=== PATIENT | male | born 1955 | race Caucasian/White ===

== ENCOUNTER 2018-06-17 17:52 | Emergency (ER) | payer OTHER ==
[~2018-06-17] VITALS: Ht 172.7 cm; Wt 63.5 kg
[2018-06-17] MEDS ORDERED: FLOMAX0.4 MG PO (18:06)
[2018-06-17] MEDS ORDERED: ASPIR 8181 MG PO (18:07)
[2018-06-17] MEDS ORDERED: FIBER LAXATIV0.52 GM PO (18:07)
[2018-06-17] MEDS ORDERED: LISINOPRIL10 MG PO (18:07)
[2018-06-17] MEDS ORDERED: UNICOMPLEX M TA1 TA1 PO (18:08)
[2018-06-17 18:31] LABS: ABSOLUTE NEUTROPHILS 10.7 thou/uL (1.4-8.2); BASOPHILS 0.6 % (0.0-2.0); EOSINOPHILS 0.2 % (0.0-3.0); HEMATOCRIT 46.4 % (42.0-52.0); HEMOGLOBIN 16.2 gm/dL (14.0-18.0); LYMPHOCYTES 10.8 % (24.0-44.0); MCH 31.2 pg (26.0-34.0); MCHC 34.9 g/dL (28.0-37.0); MCV 89.5 fL (80.0-100.0); PLATELET COUNT 254 thou/uL (150-400); POLYS 81.4 % (36.0-66.0); RBC 5.19 mil/uL (4.50-6.00); RDW 12.9 % (10.5-14.5); WBC 13.1 thou/uL (4.0-11.0)
[2018-06-17 18:41] LABS: ALBUMIN 3.4 g/dL (3.4-5.0); CALCIUM 9.6 mg/dL (8.5-10.1); CREATININE 0.8 mg/dL (0.7-1.3); DIRECT BILIRUBIN 0.3 mg/dL (<0.1-0.3); MAGNESIUM 1.6 mg/dL (1.8-2.4); TOTAL BILIRUBIN 0.8 mg/dL (<0.1-1.0); TOTAL PROTEIN 7.4 g/dL (6.4-8.2)
[2018-06-17 18:42] LABS: POTASSIUM 2.8 mmol/L (3.5-5.1)
[2018-06-17 20:32] LABS: URINE BLOOD NEGATIVE (Negative); URINE CLARITY CLEAR; URINE COLOR YELLOW; URINE GLUCOSE-RANDOM* NEGATIVE (Negative); URINE KETONES 3+ (Negative); URINE LEUKOCYTES-REFLEX NEGATIVE (Negative); URINE NITRITE-REFLEX NEGATIVE (Negative); URINE PROTEIN (DIPSTICK) NEGATIVE (Negative); URINE SPECIFIC GRAVITY 1.025 (1.005-1.035)
[2018-06-17 20:35] LABS: ICTOTEST (BILI CONFIRMATORY) Negative (Negative); URINE BILIRUBIN NEGATIVE (Negative)
[2018-06-17 21:48] VITALS: BP 163/80
== END 2018-06-17 21:56 | disposition short-term general hospital (02) ==
LOC: ER 17:52
PROVIDERS: Emergency Medicine
DX: G93.89 Other specified disorders of brain (principal); E87.6 Hypokalemia; E83.42 Hypomagnesemia; M25.572 Pain in left ankle and joints of left foot; R22.32 Localized swelling, mass and lump, left upper limb; F17.210 Nicotine dependence, cigarettes, uncomplicated

== ENCOUNTER 2018-06-29 09:48 | Inpatient (IN) | payer OTHER ==
[~2018-06-29] VITALS: Ht 172.7 cm; Wt 63.5 kg
--- NOTE | ~2018-06-29 | PLAN ---
[facility] [place] [address] REHAB UNIT PLAN OF CARE Name: RUPALI ALCARAZ Room #: 512-P ADM IN M.R.#: [id number] Admission: 06/29/18 Attend Phys: Gabino Celeste MD Discharge: Date of : 55 Report #: [id number] THIS REPORT FOR: //name// CC: Iraida Celeste DATE OF SERVICE: 07/01/2018 PROGRESS NOTE/OVERALL PLAN OF CARE The patient was seen back earlier today. Temperature 36.6, pulse 60, respirations 16, blood pressure 134/80. Scalp incision is intact. He was asking about possibly going home on a Jesus ____ with his family. Neurologic exam appeared unchanged. Transfers have been max assist x 2. Squat pivot. He is nonambulatory. He is mod assist, sit to supine, lower body dressing is dependent. He has mild comprehensive deficits. He is on a very regular consistency diet. ASSESSMENT: 1. Right frontal lobe brain mass, status post frontal craniotomy, 06/23/2018. 2. Adenocarcinoma of the lung as the primary metastatic source. 3. Left-sided weakness. 4. Headache. 5. 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 6. Benign prostatic hypertrophy. 7. Hypertension. 8. Tobacco abuse. PLAN: The overall plan of care is based on the preadmission screen, post-admission physician evaluation and information garnered from therapy assessments. 1. Estimated length of stay is probably fairly long 2-3 weeks pending progress because he is at a lower functional level. 2. Medical prognosis is reasonably good. 3. Anticipated interventions includes the interdisciplinary acute inpatient rehabilitation program with PT, OT, speech rehab nursing assisting regarding medication management, skin care prophylaxis, bowel, bladder issues and nursing education. We will have consult physicians continue to follow. 4. Anticipated functional outcomes at this point would be for him to hopefully achieve maximal independence at a wheelchair level. 5. Discharge destination would be back to the home setting. He does live in a duplex with his girlfriend. He does have supportive family. 6. Expected therapy by discipline includes PT and OT and speech 1 hour per day each 5 days a week throughout the duration of the acute inpatient rehabilitation stay. Again, I am uncertain if the therapeutic day pass for Jesus is going to be practical, but will have the therapy team assess [place] [address] REHAB UNIT PLAN OF CARE Name: KIERANRUPALI PAMELA Room #: 512-P [facility] IN [facility]#: [id number] Admission: 06/29/18 Attend Phys: Gabino Celeste MD Discharge: Date of : 55 Report #: [id number] consider family training if the family feels they could give it a try. He would need a significant amount of assistance, but we will see if anything can be worked out. By: [id number] Gabino Celeste MD /TAHIRA
[~2018-06-29 09:48] MED LIST: ASPIR 8181 MG PO; FIBER LAXATIV0.52 GM PO; FLOMAX0.4 MG PO; LISINOPRIL10 MG PO; UNICOMPLEX M TA1 TA1 PO
[2018-06-29] MEDS ORDERED: TYLENOL325 MG PO (18:39)
[2018-06-29] MEDS ORDERED: DECADRON4 MG PO (18:41)
[2018-06-29] MEDS ORDERED: COLACE100 MG PO (18:43)
[2018-06-29] MEDS ORDERED: GENTEAL TEARS1 EACH OPHTHALMIC (18:43)
[2018-06-29] MEDS ORDERED: PEPCID20 MG PO (18:45)
[2018-06-29] MEDS ORDERED: KEFLEX500 M1 PO (18:46)
[2018-06-29] MEDS ORDERED: HEPARIN 5,5000 UNIT3 IV (18:46)
[2018-06-29] MEDS ORDERED: NICOTINE TRANSD21 M1 (18:47)
[2018-06-29] MEDS ORDERED: ROXICODONE5 M2 PO (18:48)
[2018-06-29] MEDS ORDERED: SENOKOT-S1 TA2 PO (18:49)
--- NOTE | 2018-06-29 20:10 | NUR ---
PT CAME WHEELED ON PERSONAL WHEELCHAIR AT 1400H. PT WAS ACCOMPANIED BY DAUGHTER. PT ORIENTED TO UNIT. PT A&OX4. PT ON RA. PT HAS POLIO. PT AFFECTED ON L SIDE ARM AND LEG. L SIDE IS FLACCID. PT HAD R FRONTAL CRANIOTOMY AT . PT HAS SMITA IN PLACE CHANTAL. PT STATES DUE TO BE TAKEN OUT ON . PT HAS L ARM INTERIOR WOUND COVERED WITH MEDIHONEY AND BIOTIN FOAM. PHOTO TAKE AND ON CHART. CONSULT TO WOUND CARE AWAITING ON TREATMENT PLAN. PT STATES ON CHEMICAL STATUS. PT RECORD ON CHART. PT ON MAX ASSIST. ORDERS FOR BOBBY LIFT. PT ABLE TO USE URINAL. PT FALL PRECAUTION IN PLACE. PT BED ALARM ON. PT CALL LIGHT WITHIN REACH. PT CONTINUES TO BE MONITORED FOR SAFETY.
[2018-06-29 20:47] VITALS: BP 124/66
--- NOTE | 2018-06-30 02:49 | NUR ---
assumed care at approx 1900 evening 06/29. pt lying in bed with head of bed elevated resting. pt c/o headache, given Tylenol and reported pain relief. pt took hs meds with water tolerating well. pt voiding per urinal. pt appears to be sleeping soundly with hourly rounding checks. bed alarm on and call light in reach. will continue to monitor.
[2018-06-30 04:52] LABS: ANION GAP 7 mmol/L (7-16); BUN 27 mg/dL (7-18); CALCIUM 8.9 mg/dL (8.5-10.1); CHLORIDE 102 mmol/L (98-107); CO2 25 mmol/L (21-32); CREATININE 0.6 mg/dL (0.7-1.3); GLUCOSE 118 mg/dL (74-106); MAGNESIUM 1.9 mg/dL (1.8-2.4); POTASSIUM 4.5 mmol/L (3.5-5.1); SODIUM 134 mmol/L (136-145)
[2018-06-30 04:55] LABS: HEMATOCRIT 40.8 % (42.0-52.0); HEMOGLOBIN 13.6 gm/dL (14.0-18.0); MCH 30.3 pg (26.0-34.0); MCHC 33.3 g/dL (28.0-37.0); MCV 91.1 fL (80.0-100.0); RBC 4.48 mil/uL (4.50-6.00); RDW 13.4 % (10.5-14.5); WBC 10.4 thou/uL (4.0-11.0)
--- NOTE | 2018-06-30 08:00 | NUR ---
cm visited with saulo at bedside, he is a & o x 3, flat affect, pleasant and able to make his needs know. intro to cm,team meeting, dcp, home health and outpt rehab. per saulo " live in duplex with girl friend, was independent before the hand and head thing. use crutches. got polio when was 3 years old. was driving 2-3 months ago. manage own medication. daughter take me to dr appointments. dr marika dupree in [place] is my dr"/saulo. 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 no rehab or hh. cm visited with daughter eriberto, intro to cm and dcp, she reported " i have also been having to help dad at home as well, before his hand and head tumor, the polio had only affected his left leg. thanks for calling. "/eriberto. will cont following as needed for dc needs.
[2018-06-30 08:47] VITALS: BP 131/73
[2018-06-30] MEDS ORDERED: KEPPRA 500 MG500 M1 PO (09:25)
[2018-06-30 09:37] LABS: CHOLESTEROL 192 mg/dL (<200); HDL CHOLESTEROL 62 mg/dL (>40); LDL CHOLESTEROL 119 mg/dL (<100); TC:HDL 3.1 Ratio (Not establshd); TRIGLYCERIDE 57 mg/dL (<150); VLDL 11 mg/dL (<40)
--- NOTE | 2018-06-30 11:09 | NUR ---
Nutrition: pt admitted with right frontal craniotomy and resection of brain mass. Consulted per rehab admission orders. Regular diet. Stable wts reported and good appetite, eating 100% of meals. Not interested in supplements at this time. Surgical wound to head. Encourage adequate protein. Consider low risk.
--- NOTE | 2018-06-30 15:08 | H ---
[facility] [place] [address] HISTORY AND PHYSICAL Name: RUPALI ALCARAZ Room #: 512-P ADM IN M.R.#: [id number] Admission: 06/29/18 Attend Phys: Gabino Celeste MD Discharge: Date of : 55 Report #: [id number] THIS REPORT FOR: //name// CC: Iraida Celeste DATE OF SERVICE: 06/29/2018 HISTORY OF PRESENT ILLNESS: This is a 62-year-old male who was admitted to [facility] with complaints of headache, inability to ambulate and left-sided weakness. He was diagnosed with a right frontal brain mass with vasogenic edema and left to right midline shift. He was also found to have a lung mass and he underwent biopsy on 06/19/2018 with findings consistent with probable adenocarcinoma. It was felt lung was primary with mets to the brain. He underwent right frontal craniotomy on 06/23/2018. He was initially treated with steroids, antiepileptics and in the ICU. The patient had some electrolyte abnormalities that were replaced. The patient has history of childhood polio with premorbid weakness in the left lower extremity requiring crutches premorbidly to ambulate. He had a functional mobility decline with inability to ambulate approximately one month prior to admission. Due to his continued functional mobility deficit, he is now admitted to acute inpatient rehabilitation. Today, the patient complains of headaches. It is worse with his cough. He denies chest pain or shortness of air. He denies abdominal pain, nausea or constipation. He reports having a good appetite. He denies any urinary retention or dysuria. He denies numbness or tingling. He reports prior to surgery, he was not able to move his left lower extremity due to the polio, PAST MEDICAL HISTORY: Hypertension, benign prostatic hypertrophy, polio. HABITS: He is a daily cigarette smoker. No illicit drug use. He drinks alcohol on social occasions. SOCIAL HISTORY: The patient lives in a duplex with his girlfriend who is also on disability, threshold entry stair. There are 0 stairs once inside. Premorbidly utilized crutches. He reports prior to the one month before his admission, he was independent with all ADLs. He shares IADL responsibilities with his girlfriend. He was still driving. CODE STATUS: The patient is a chemical code only with use of BiPAP if needed. He does not want any intubation or CPR, but is okay with medication support. He would be okay with a tube feeding for short term, but does not want any long-term parenteral nutrition. ALLERGIES: No known drug allergies. CURRENT MEDICATIONS: Flomax 0.4 mg daily, multivitamin one tablet daily, [facility] [address] [place] [address] HISTORY AND PHYSICAL Name: RUPALI ALCARAZ PAMELA Room #: 512-P [facility] IN M.R.#: [id number] Admission: 06/29/18 Attend Phys: Gabino Celeste MD Discharge: Date of : 55 Report #: [id number] lisinopril 10 mg daily, aspirin 81 mg daily, Metamucil 12 grams at bedtime, senna 8.6 mg daily, milk of mag daily p.r.n., Colace 100 mg b.i.d. p.r.n., bisacodyl suppository p.r.n., Tylenol 650 q.4 hours p.r.n. REVIEW OF SYSTEMS: Remainder of his 14-point review of systems is negative except as listed in HPI. PHYSICAL EXAMINATION: GENERAL: The patient is awake, alert. He is oriented x 3. He is in no apparent distress. He is on room air. HEENT: Head is normocephalic. He does have right frontal katia that are clean, dry, intact and are open to air. Eyes: EOMs are intact. I do not appreciate any significant nystagmus. No pharyngitis, no rhinorrhea. NECK: No lymphadenopathy. CHEST: He does have hilar lymphadenopathy. LUNGS: Clear and diminished. CARDIAC: Regular rate and rhythm. S1, S2. ABDOMEN: Bowel sounds are positive, soft, nontender, nondistended. GENITOURINARY: No CVA tenderness. EXTREMITIES: Left upper extremity, very minimal range of motion, barely any coroner technician strength. No clonus. Right upper extremity, functional range of motion. Right upper extremity strength grossly 3+ to 4-. Left lower extremity, decreased muscle mass. Positive pedal edema bilateral. Left lower extremity, unable to lifting anti-gravity, unable to flex or dorsiflex foot. Right lower extremity, minimal range of motion. Negative Homans sign. Unable to lift off bed, max assist of 2 for squat pivot transfer. NEUROLOGIC: Flat affect, slow verbal response. Sensation appears grossly intact. ASSESSMENT: 1. Right frontal lobe brain mass, status post frontal craniotomy on 06/23/2018. 2. Adenocarcinoma of the lung as primary metastatic source. 3. Left-sided weakness. 4. Headache. 5. 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 6. Benign prostatic hypertrophy. 7. Recent electrolyte abnormalities, now corrected. 8. Hypertension. 9. Tobacco abuse. PLAN: The patient has been admitted to acute inpatient rehabilitation unit. He will have physical, occupational and speech therapies. We have consulted hospitalist services for acute medical management. He will also have neuropsychology testing. He will be on a regular diet. We will check a CBC and BMP in the morning. He will follow up with Neurosurgery next week. We will [facility] [place] [place] [address] HISTORY AND PHYSICAL Name: RUPALI ALCARAZ Room #: 512-P [facility] IN .R.#: [id number] Admission: 06/29/18 Attend Phys: Gabino Celeste MD Discharge: Date of : 55 Report #: [id number] monitor his craniotomy site daily. He will have a team conference next week. We will provide tobacco counseling cessation. Please see extensive orders. <ELECTRONICALLY SIGNED> By: SHAHRIAR Causey 06/30/18 1508 [id number] [id number] SHAHRIAR Causey /nt
--- NOTE | 2018-06-30 15:21 | NUR ---
PATIENT PARTICIPATED IN ALL THERAPIES THIS SHIFT. UP TO WHEELCHAIR WITH SLIDE BOARD AND 2 PERSON ASSIST. AOX4, DENIES PAIN OR SOA. WOUND CARE PROVIDED & WOUND CONSULT COMPLETED THIS SHIFT. CALLS FOR ASSIST APPROPRIATELY, FALL PRECAUTIONS IN PLACE. FAMILY VISITING WITH PATIENT AT THIS TIME, MOOD IMPROVED WITH VISITORS. OTHERWISE PATIENT WITHDRAWN DURING INTERACTIONS.
--- NOTE | 2018-06-30 15:50 | NUR ---
REC REPORT OF PT AROUND 1530 FROM DEPARTING RN WHICH REPORTS OF PT BEING APPROVED BY PT TO AMB OUTSIDE OF HIS ROOM W/FAMILY. A&0X4, FALL RISK, MAX STAND W/SLIDER BOARD, USES URINAL, SEVERAL WOUNDS INNER ARM AND L BUTTOCK THAT PRIOR RN PHOTOGRAPHED AND CONTACTED WOUND RN, NO MORE ACCU CHECKS TO BE DONE, AND REGULAR DIET. WILL INTRO TO PT AND FAMILY WHEN THEY ARE AVAILABLE
[2018-06-30 20:14] VITALS: BP 129/78
--- NOTE | 2018-07-01 01:11 | NUR ---
ASSUMED CARE OF PT AT 1915. PT ALERT AND ORIENTED X4. DENIES PAIN, NAUSEA OR DYPSNEA. C/O CONSTIPATION. ORDER REC'D FOR DULCOLAX SUPP. PT SUBSEQUENTLY HAD VERY LARGE HARD STOOL ON BEDPAN. ABDOMEN SOFT WITHOUT DISTENSION, ACTIVE BOWEL SOUNDS. PT HAS APPEARED TO BE SLEEPING WHEN CHECKED ON HOURLY ROUNDS. FALL PRECAUTIONS IN PLACE.
[2018-07-01 07:45] VITALS: BP 134/80
--- NOTE | 2018-07-01 10:10 | NUR ---
ASSUMED CARE AT 0700. PATIENT IS ALERT AND ORIENTED X4. PATIENT HAS LEFT ARM WEAKNESS AND LEFT LEG IS FLACCID. PATIENT IS A SLIDE BOARD TRANSFER TO W/C. PATIENT IS INCONTINENT OF STOOL X2 TODAY. LAXATIVES HELD. PATIENT VOIDS PER URINAL. PATIENT HAD BREAKFAST IN BED. SMITA IN TOP OF HIS HEAD ARE DRY AND INTACT. PTIENT UP IN W/C WITH PATIENT, PATIENT IS SLIDING BOARD FROM BED TO W/C. FALL AND SAFETY PROTOCOLS IN PLACE. DENIES PAIN AT THIS TIME. CONTINUES TO PROGRESS SLOWLY TOWARDS D/C GOALS. WILL CONTINUE TO MONITER.
[2018-07-01 21:26] VITALS: BP 116/64
--- NOTE | 2018-07-02 01:02 | NUR ---
PT ALERT AND ORIENTED X 4. LEFT SIDED WEAKNESS. SMITA C/D/I TO HEAD. PT C/O HEADACHE AT START OF SHIFT. OXYCODONE GIVEN ORDERED. BED ALARM ON FOR SAFETY. PT APPEARS TO BE SLEEPING ON HOURLY ROUNDS.
[2018-07-02 07:53] VITALS: BP 115/61
--- NOTE | 2018-07-02 09:44 | NUR ---
ASSUMED CARE AT 0700. PATIENT IS ALERT AND ORIENTED X4. PATIENT HAS LEFT ARM WEAKNESS AND LEFT LEG FLACCIDITY. PATIENT HAS SMITA INTACK LATERALLY ON HIS HEAD. PATIENT LUNGS ARE CLEAR, ABD IS SOFT WITH BSX4. FALL AND SAFETY PROTOCOLS IN PLACE. DENIES H.A. PAIN AT THIS TIME. PATIENT IS SLIDING BOARD TRANSFER FROM BED TO W/C. PLAN FOR FAMILY TRAINING ON MON FOR PASS ON REBEKAH. CONTINUES TO PROGRESS SLOWLY TOWARDS D/C GOALS. WILL CONTINUE TO MONITER.
--- NOTE | 2018-07-02 17:17 | HC ---
[facility] [place] [address] CONSULTATION Name: RUPALI ALCARAZ Room #: 512-P [facility] IN M.R.#: [id number] Admission: 06/29/18 Attend Phys: Gabino Celeste MD Discharge: Date of : 55 Report #: [id number] THIS REPORT FOR: //name// CC: Iraida Celeste DATE OF SERVICE: 07/01/2018 NEUROBEHAVIORAL STATUS EXAMINATION ATTENDING PHYSICIAN: Gabino Celeste MD CLINIC LICENSED PRACTICAL NURSE: Bunny Whaley, PhD CLINICAL PRESENTATION: The patient is a 62-year-old male, admitted to the rehabilitation unit at [facility] for a comprehensive inpatient rehabilitation program to improve functional mobility, activities of daily living and self-care and mental status secondary to deficits from a right frontal lobe mass and is status post frontal craniotomy on 06/23/2018. He carries an assessment that includes adenocarcinoma of the lung as primary metastatic source. His rehabilitation assessment included left hemiparesis, headache, premorbid left lower extremity weakness secondary to childhood polio, benign prostatic hypertrophy, recent electrolyte abnormalities that are now corrected, hypertension and tobacco abuse. The patient was initially admitted to the [facility] with complaints of headache, inability to ambulate and left-sided weakness. It was at that time he was diagnosed with a right frontal brain mass with vasogenic edema and a left to right midline shift. He was also found to have a lung mass and underwent biopsy on 06/19/2018 with findings consistent with an adenocarcinoma. The patient underwent a right frontal craniotomy. Refer to medical record for complete summary of his medical condition, history and medications. Neuropsychological consultation was requested to provide assistance in the assessment of cognitive and emotional status and to provide recommendations. Prior to this most recent medical event, he was living independently with a girlfriend. The patient was employed as a mechanical planner. He has 2 children and 4 grandchildren. There is no prior history of treatment for depression or anxiety reported. He also does not have a prior history of alcohol or drug abuse. TECHNIQUES UTILIZED: Clinical interview, review of medical records, staff consultation and behavioral observation, mini mental status exam 2 standard version and clock drawing. [address] [address] CONSULTATION Name: RUPALI ALCARAZ RICHMOND Room #: 512-P [facility] IN ..#: [id number] Admission: 06/29/18 Attend Phys: Gabino Celeste MD Discharge: Date of : 55 Report #: [id number] EXAMINATION FINDINGS: The patient was alert and cooperative with the assessment. He reports his symptoms to include feeling "foggy", that his left hand seems to be getting worse in his ability to manipulate objects and that he is weak on his left side. He was aware of having had a tumor that was further impairing the left side of his body. His behavior during the interview was very distracted with irritability noted when challenged. He does not report auditory or visual hallucinations or present with an aphasia. His insight into his deficits is poor. He does not report difficulty with memory, sleep, appetite, anxiety or depression. However, deficits are noted with limited expressive speech, memory and word finding. Additionally, his mood appears despondent and irritable when cognition is challenged. Performance on the MMSE 2 brief version was within normal limits with a raw score of 14/16 and a T score of 42. He was 3/3 for initial registration, 5/5 for orientation to time and place. He was 1/3 for immediate recall of 3 items after a brief time delay and distraction. Performance on the MMSE 2 standard version was extremely low with a raw score of 22, T score of 28 and percentile rank of 1. The patient was 4/5 for serial 7's, 2/2 for naming. He was 1/1 for repetition, 3/3 for auditory comprehension, and he could read and follow single command. However, the patient was not able to write a sentence or copy a simple geometric design. Clock drawing was within normal limits. The patient is presenting with difficulty in immediate recall, sustained concentration and visual spatial organization. He appears distractible and mood somewhat irritable. 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 Unspecified depressive disorder. Tobacco Abuse RECOMMENDATIONS: The patient will benefit from a treatment program with emphasis on strengths and resources to assist in coping with specific deficits that are associated with neurocognitive functioning. Areas of decreased functioning will need to be emphasized to assist him in recognition of deficits for subsequent compensation. The use of relaxation techniques may be of benefit. Verbal praise and complements about participation in therapy and an explanation of the purpose of treatment will likely be necessary. He should also have written information to [address] [address] CONSULTATION Name: RUPALI ALCARAZ PAMLEA Room #: 512-P [facility] IN ..#: [id number] Admission: 06/29/18 Attend Phys: Gabino Celeste MD Discharge: Date of : 55 Report #: [id number] assist in compensation for variability and deficits. He is very distractible and will need frequent redirection during therapeutic activity. Thank you very much for allowing me to provide the consultation on this patient. <ELECTRONICALLY SIGNED> By: Bunny Whaley, PhD 07/02/18 1717 1603 28 Bunny Whaley, PhD /nt
[2018-07-02 20:10] VITALS: BP 118/62
--- NOTE | 2018-07-03 03:23 | NUR ---
ASSUMED CARE OF PT AT 1915. PT ALERT AND ORIENTED X4. FAMILY MEMBERS AT BEDSIDE THROUGH THE EVENING HOURS. PT DENIES PAIN, NAUSEA OR DYPSNEA. HAS APPEARED TO BE SLEEPING WHEN CHECKED ON HOURLY ROUNDS. FALL PRECAUTIONS IN PLACE.
[2018-07-03 08:00] VITALS: BP 115/70
--- NOTE | 2018-07-03 09:14 | HC ---
[facility] [place] [address] CONSULTATION Name: RUPALI ALCARAZ Room #: 512-P [facility] IN M.R.#: [id number] Admission: 06/29/18 Attend Phys: Gabino Celeste MD Discharge: Date of : 55 Report #: [id number] THIS REPORT FOR: //name// CC: Iraida Celeste DATE OF SERVICE: 07/01/2018 REASON FOR CONSULTATION: Wound care consultation for stage 2 pressure ulcers of left hip and left elbow in a 62-year-old patient status post craniotomy for metastatic brain tumor on 06/23/2018 with left-sided weakness and immobility. HISTORY OF PRESENT ILLNESS: The patient is a 62-year-old disabled gentleman who has lower extremity weakness and immobility over his lifetime due to childhood polio. He is a lifetime cigarette smoker, currently with a Nicoderm patch. The patient developed left-sided weakness involving the left arm, leg. He was worked up at [facility], found to have a brain lesion on the right side, turned to be metastatic lung cancer with large mass of the brain. The patient had left-sided weakness. The patient underwent craniotomy, removal of tumor at [facility] on 06/23/2018. Transferred to [facility] for rehabilitation. The patient has been unable to ambulate with left-sided weakness after ____ right frontal brain mass. Wound Care is consulted. PAST MEDICAL HISTORY: Hypertension, benign prostatic hypertrophy, childhood polio, tobaccoism. SOCIAL HISTORY: The patient is a cigarette smoker. He lives with a girlfriend who also is on disability. ALLERGIES: No known drug allergies. HOME MEDICATIONS: Flomax, multiple vitamins, lisinopril, aspirin, Metamucil, senna, milk of magnesia, Colace, bisacodyl, Tylenol. REVIEW OF SYSTEMS: The patient has always had weakness to the lower extremities and been immobile, now has left-sided weakness, unable to move his left arm. PHYSICAL EXAMINATION: GENERAL: Shows a chronically ill-appearing, thin, but alert gentleman who is a good historian and conversant. Mucous membranes are moist. The patient has a horizontal stapled incision of his cranium in the right frontal area, stapled incision line approximately 9 cm long, well healing with no redness and no drainage. Mucous membranes are moist. LUNGS: Respirations are unlabored. HEART: Shows regular rate and rhythm. ABDOMEN: Scaphoid. [address] [address] CONSULTATION Name: RUPALI ALCARAZ PAMELA Room #: 512-P [facility] IN .R.#: [id number] Admission: 06/29/18 Attend Phys: Gabino Celeste MD Discharge: Date of : 55 Report #: [id number] EXTREMITIES: The patient has marked weakness of the left arm. Examination of the inner left elbow shows a 2 x 1.5 cm superficial stage 2 pressure ulcer with some mild adherent grayish white exudate. This was covered with a Mepilex pad. Examination of the lower extremity showed muscle wasting. The patient has extreme weakness of the legs. Left lateral hip, there is a small 1 x 1.5 cm superficial well healing stage 2 pressure ulcer with minimal exudate. No other wounds are found. ASSESSMENT: 1. Right frontal brain lobe mass, status post frontal craniotomy on 06/23/2018 for presumed metastatic lung cancer. 2. Left-sided hemiparesis. 3. Chronic immobility and disability with immobility secondary to polio. 4. Protein-calorie malnutrition with muscle wasting. 5. Stage 2 pressure ulcer of left inner elbow. 6. Stage 2 pressure ulcer of left hip. 7. Hypertension. 8. Tobaccoism. PLAN: We will order for the patient a low air loss mattress. Order frequent repositioning. We will order Mepilex pad to be changed every other day to the left hip, left inner elbow. Encourage p.o. nutrition. Tobacco cessation with Nicoderm patch. Wound care team will follow. <ELECTRONICALLY SIGNED> By: Paco Marcano MD 07/03/18 0914 [id number] [id number] Paco Marcano MD /nt
--- NOTE | 2018-07-03 18:26 | NUR ---
PT RESTING IN BED AT THIS TIME. HAS FAMILY AND FRIENDS VISITING. DRESSING'S TO LEFT ELBOW And LEFT HIP CHANGED ORDERED. PT IS ON LOW AIR LOSS MATRESS THIS NURSE MOVED NEW BED IN ROOM AFTER ORDERING THE LOW AIR LOSS PUMP. PT W/O PAIN OR RESP DISTRESS AT THIS TIME. SMITA TO TOP OF HEAD. PT WORKING WITH PATIENT.
[2018-07-03 19:43] VITALS: BP 135/75
--- NOTE | 2018-07-04 05:39 | NUR ---
ASSUMED CARE OF PT APPROX 2030HRS. PT A&O X4 ABLE TO MAKE BASIC NEEDS KNOWN. CALM AND COOPERATIVE. C/O FERNANDES AT HS EFFECTIVELY CONTROLLED VIA PRN PAIN MEDS. LEFT SIDE WEAKNESS D/T HX OF POLIO. CONT USES URINAL REQUIRES ASSISTANCE EMPTYING CALLS APPROPRIATELY. PT REFUSED SCDS AT HS
[2018-07-04 09:14] VITALS: BP 134/74
--- NOTE | 2018-07-04 09:15 | NUR ---
ASSUME PT CARE AT 0700. REPORTS SLEPT OK. C/O HEADACHE 10/18, GAVE PRN TYLENOL WITH MORNING MEDS. PT HAS ORDER TO GO HOME WITH FAMILY FOR REBEKAH. VSS ON RA. ALERT AND ORIENTED X4. HAS NO CONCERN AT THIS MOMENT. REFUSED NICOTINE PATCH. WILL CONTINUE TO FOLLOW UP WITH CARE WHEN PT COMES BACK
[2018-07-04 22:35] VITALS: BP 112/74
--- NOTE | 2018-07-05 03:04 | NUR ---
PT ASSESSMENT COMPLETED AND VSS. MEDS GIVEN ORDERED AND WELL TOLERATED. FALL PRECAUTIONS IN PLACE. PRN PAIN MEDICATION WORKING WELL. SUTURES ON SIDE OF HEAD DRY AND INTACT. ASST WITH REPOSITION FOR COMFORT. SUPPORTIVE FAMILY IN ROOM. WILL CONTINUE TO MONITOR FREQUENTLY.
[2018-07-05 07:38] VITALS: BP 131/75
--- NOTE | 2018-07-05 11:11 | NUR ---
PT. UP IN W/C, STABLE. HE IS OFFERED AND TAKES REST BREAKS BETWEEN THERAPIES. HE IS PLEASANT AND COOPERATIVE. NO NEW PROBLEMS NOTED/VOICED FALL PERCAUTIONS ARE IN PLACE, CALL LIGHT IS WITH IN REACH OF PATIENT.
--- NOTE | 2018-07-05 15:42 | NUR ---
ASSUMED CARE AT APPROX 0715. PATIENT A/O X4. DENIES PAIN. VSS. MEDS ADMINISTERED EXCEPT FOR NICOTINE PATCH WHICH PATIENT REFUSED. PATIENT PARTICIPATED IN THERAPY. FALL PRECAUTIONS IN PLACE. PATIENT ROUNDED ON AT APPROX 1455, PATIENT HAD A VISITOR AT BEDSIDE. AT 1510, ROLL TABLE OPERATOR NOTICED PATIENT WAS NOT IN HIS ROOM. SECURITY NOTIFIED, PATIENT AND VISITOR FOUND ATTEMPTING TO SMOKE. PATIENT ESCORTED BACK TO UNIT, REHAB COORDINATOR SPOKE WITH PATIENT REGARDING LEAVING UNIT. WILL CONTINUE TO MONITOR.
[2018-07-05 19:18] VITALS: BP 111/59
--- NOTE | 2018-07-06 02:00 | NUR ---
assumed care at approx 1900 evening 07/05. pt lying in bed with head of bed elevated resting at change of shift and visiting with visitors at bedside. pt denies complaints. pt took hs meds with water tolerating well. pt appears to be sleeping soundly with hourly rounding checks. bed alarm on and call light in reach. will continue to monitor.
[2018-07-06 07:41] VITALS: BP 108/69
--- NOTE | 2018-07-06 10:14 | NUR ---
WOUND CONSULT: PT. WAS SEEN ON 07/05/[address] ROSA AND MYSELF. PT. HAS AN WELL APPROXIMATED INCSION TO HIS HEAD FREE OF ANY SIGNS OR SYMPTOMS OF INFECTION. PT. HAS HAS 2 SMALL AND STABLE STAGE 2 PRESSURE ULCERS LOCATED ON HIS LEFT GREATER TROCHANTER AND LEFT INNER ELBOW. RECOMMENDATIONS: WOUND CARE TO LEFT GREATER TROCHANTER AND LEFT INNER ELBOW: GENTLY CLEANSE WITH WOUND CLEANSER OR NORMAL SALINE, COVER WITH OPTIFOAM BORDER, COMPLETE CARES M/W/F AND PRN SOILAGE. WOUND CARE TO HEAD: LEAVE SALES PROMOTION COORDINATOR AND MONITOR FOR SIGNS AND SYMPTOMS OF INFECTION. PT. AND STAFF NURSE WERE INSTRUCTED ON PLAN OF CARE.
--- NOTE | 2018-07-06 10:28 | NUR ---
[facility], PATIENT WAS SCHEDULED TO SEE THE NEUROSURGERY KITCHEN WORKER DONNA MURGUIA TODAY FOR STAPLE REMOVAL. CONTACTED THE OFFICE FOR THIS KITCHEN WORKER, AND THE RN MARICRUZ STATED THAT THEY RECOMMENDED THAT WE REMOVE THE SMITA HERE ON THE REHAB UNIT, INSTEAD OF TAKING THE PATIENT TO THEIR OFFICE. MARICRUZ STATED THAT IRIS MURGUIA IS AVAILABLE FOR FOLLOWUP IF THERE ARE ANY ISSUES WITH THE INCISION. THERE WERE ALSO INITIALLY OTHER APPOINTMENTS WITH THE RADIATION ONCOLOGIST SCHEDULED FOR TODAY. CONTACTED THAT OFFICE AND THIS WAS RESCHEDULED YESTERDAY FOR 07/27 FOLLOWS: [address] SENG CESPEDES, 0930 RADIATION SIMULATION, AND 1130 MRI. LULÚ MACHADO NP FOR REHAB HAS BEEN INFORMED, AND ORDERS RECIEVED.
--- NOTE | 2018-07-06 10:55 | NUR ---
ASSUMED PT CARE AT 0700. ASSESSED PT AT 0900. PT UP IN CHAIR. REPORTS HEADACHE RATED 5/10. OXYCODONE GIVEN. ASSESSMENT IS CHARTED, EDEMA TO BILATERAL FEET/LEGS. ALERT/ORIENTED X4. PT WANTS TO REST WHEN HIS THERAPY SCHEDULE ALLOWS. OTHERWISE NO OTHER CONCERNS. SMITA TO HEAD ARE INTACT, INCISION APPEARS ASYMPTOMATIC AND IS OPEN TO AIR. WILL CONTINUE WITH CURRENT CARE.
--- NOTE | 2018-07-06 12:46 | NUR ---
team meeting, recommendation: 07/14/18, home with girl friend, needs assist with medication and financial compliance examiner. home health ( pt, ot, st, nursing ). has wheel chair already.
--- NOTE | 2018-07-06 13:23 | H ---
[facility] [place] [address] HISTORY AND PHYSICAL Name: RUPALI ALCARAZ Room #: 512-P ADM IN M.R.#: [id number] Admission: 06/29/18 Attend Phys: Gabino Celeste MD Discharge: Date of : 55 Report #: [id number] THIS REPORT FOR: //name// CC: Iraida Celeste DATE OF SERVICE: 06/29/2018 POSTADMISSION PHYSICIAN EVALUATION HISTORY OF PRESENT ILLNESS: This is a 62-year-old white male originally admitted to [facility] with complaints of headache and ability to ambulate with left-sided weakness. He was diagnosed with right frontal brain mass with left to right midline shift. He also was noted to have a lung mass and underwent biopsy on 06/19/2018 with findings consistent with probable adenocarcinoma. It was felt the lung was the primary with mets to the brain. He underwent a right frontal craniotomy on 06/23/2018. He was initially treated with steroids and antiepileptics. He had some electrolyte abnormalities that were replaced. The patient has a history of childhood polio with some premorbid weakness of the left lower extremity, requiring crutches premorbidly to ambulate. With the significantly worsened left-sided weakness involving especially his left upper extremity as well as left lower extremity cognitive concerns and definite decreased function. He has been admitted now for acute in-hospital inpatient rehabilitation. PAST MEDICAL HISTORY, HABITS, SOCIAL HISTORY, AND ALLERGIES: Please see Sonya Noel's history and physical dictation. MEDICATIONS: Please see the full medication listing, this includes vitamins, herbals, and supplements. REVIEW OF SYSTEMS: No current complaints of chest pain, shortness of breath or abdominal discomfort. No complaints of extremity pain. PHYSICAL EXAMINATION: VITAL SIGNS: Noted, temperature 97.9, pulse 72, respirations 18, blood pressure 124/66. GENERAL: He is pleasant. HEENT: Right front katia clean, dry and intact, open to air. No obvious nystagmus. CHEST: Sounded clear to auscultation. CARDIOVASCULAR: Regular rate and rhythm. ABDOMEN: Bowel sounds positive, nontender. NEUROMUSCULOSKELETAL: He does have decreased tone with essentially flaccid densely plegic left upper extremity. Left lower extremity is a grade 2+ to 3-, unable to dorsiflex the foot. Right upper extremity has functional range of [facility] [address] [place] [address] HISTORY AND PHYSICAL Name: RUPALI ALCARAZ [place] Room #: [address] [place] [address] IN ..#: [id number] Admission: 06/29/18 Attend Phys: Gabino Celeste MD Discharge: Date of : 55 Report #: [id number] motion with strength more of a grade 3+ to 4-/5. Right lower extremity unable to lift off the bed, probably a grade 3-. Sensation appears reasonably intact to simultaneous stimulation. He does have increased problem solving time needed with delay in his responses. ASSESSMENT: A 62-year-old white male with the following problem list: 1. Right frontal lobe brain mass, status post frontal craniotomy on 06/23/2018. 2. Adenocarcinoma of the lung as the primary metastatic source. 3. Left-sided weakness. 4. Headache. 5. 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 6. Benign prostatic hypertrophy. 7. Hypertension. 8. Tobacco abuse. PLAN: From a postadmission physician evaluation perspective, there are no relevant changes since the preadmission screen. Please see the above review of prior and current medical and functional conditions and comorbidities. The therapy evaluations are currently underway and prior to admission he has been needing max assist x 2 for basic transfers and has done some limited sitting at the edge of the bed. As far as risk of complications, he does have the multiple medical comorbidities as noted above. Initial plan of care involves the interdisciplinary acute inpatient rehabilitation program with goal of maximizing his functional independence so that he can return back to his prior living situation. Measurable functional goals would be for him to become ideally independent at least at the wheelchair level initially. Prognosis is reasonably good from a rehabilitation perspective with estimated length of stay probably around 2 weeks to 3 weeks and potentially longer depending upon how he does and what he needs. Potential barriers would include his multiple medical comorbidities and decreased functional status. The patient meets diagnostic criteria for an acute in-hospital inpatient rehabilitation stay. He meets the medical necessity criteria and we will have the consult physicians continue to follow. He does have the tolerance for therapies and has appropriate discharge goals back to the home setting. <ELECTRONICALLY SIGNED> By: Gabino Celeste MD 07/06/18 1323 [id number] [id number] Gabino Celeste MD /nt
--- NOTE | 2018-07-06 16:04 | NUR ---
PT DOING WELL THIS SHIFT. PARTICIPATED IN THERAPY AND TOLERATED WELL. PAIN IN HEAD UNDER CONTROL. REFUSES PAIN MEDICATION AT THIS TIME. ENCOURAGED PT TO CALL IF MED NEEDED. NO OTHER CONCERNS AT THIS TIME. PT IN CHAIR VISITING. WILL CONTINUE WITH CURRENT CARE.
--- NOTE | 2018-07-06 16:06 | NUR ---
NOTIFIED RUFUS SHANKS AT [facility] OF REFERRAL SHE WILL REVIEW. ANTICIPATE DC 07/14/18. DCP TO FOLLOW.
--- NOTE | 2018-07-06 16:08 | NUR ---
LAURA, PT'S DAUGHTER, STATED THAT PT WAS INITIALLY APPROVED FOR A HOSPITAL BED WHEN HE WAS AT THE OTHER FACILITY. FAMILY STATED THAT THIS BED WAS STILL NEEDED, FOR THE USE OF THE SIDERAILS AND ELEVATED HEAD FEATURES. THIS WILL BE COMMUNICATED TO THE TEAM TO DETERMINE THE BEST DME FOR THIS PATIENT.
[2018-07-06 19:35] VITALS: BP 108/64
--- NOTE | 2018-07-07 02:56 | NUR ---
APPRECIATES MED FOR HEADACHE OF 3/10 AND MELATONIN, HAS BEEN RESTING WELL. USING URINAL INDEPENDENTLY.
[2018-07-07 04:49] LABS: ABSOLUTE NEUTROPHILS 4.4 thou/uL (1.4-8.2); BASOPHILS 0.3 % (0.0-2.0); EOSINOPHILS 0.6 % (0.0-3.0); HEMATOCRIT 36.3 % (42.0-52.0); HEMOGLOBIN 12.7 gm/dL (14.0-18.0); LYMPHOCYTES 31.4 % (24.0-44.0); MCH 32.1 pg (26.0-34.0); MCHC 35.1 g/dL (28.0-37.0); MCV 91.3 fL (80.0-100.0); MONOCYTES 8.3 % (1.0-8.0); PLATELET COUNT 232 thou/uL (150-400); POLYS 59.4 % (36.0-66.0); RBC 3.97 mil/uL (4.50-6.00); RDW 13.5 % (10.5-14.5); WBC 7.5 thou/uL (4.0-11.0)
[2018-07-07 05:09] LABS: CALCIUM 9.3 mg/dL (8.5-10.1); CREATININE 0.6 mg/dL (0.7-1.3); MAGNESIUM 1.9 mg/dL (1.8-2.4)
[2018-07-07 07:30] VITALS: BP 126/77
--- NOTE | 2018-07-07 07:33 | HC ---
[facility] [address] CONSULTATION Name: RUPALI ALCARAZ Room #: 512-P ADM IN M.R.#: [id number] Admission: 06/29/18 Attend Phys: Gabino Celeste MD Discharge: Date of : 55 Report #: [id number] THIS REPORT FOR: //name// CC: ROSA MARIA Vidal REASON FOR CONSULTATION: The patient admitted to Rehab after transfer from . HISTORY OF PRESENT ILLNESS: The patient is a pleasant 62-year-old gentleman who was originally seen here when he presented with several months of worsening weakness in the left upper extremity and progressive headaches. He was found to have most likely metastatic adenocarcinoma of the lung, metastatic to brain. On the MRI of the brain, he had 3 mets, with the largest causing significant amount of edema and midline shift. On the CT chest and abdomen, his disease appeared to be limited to the lung and mediastinum. A PET scan was not done at that time, if I understand right. The patient underwent surgery and they are considering stereotactic radiation therapy to two smaller lesions. Dr. Carcamo had ordered molecular test to see if the patient might be eligible for oral agents and also PD-L1 type therapy. The patient is currently in rehabilitation. PAST MEDICAL HISTORY: Past history is notable for the recent diagnosis of stage 4 adenocarcinoma with brain mets at diagnosis, might consider PET scan as outpatient. Also, history of polio in the past. Also, history of BPH and hypertension. Note that he had past weakness, with no motor strength in his left lower extremity. SOCIAL HISTORY: Disabled, current smoker, no alcohol, no street drugs. FAMILY HISTORY: It sounds like there is a lot of cancer in his family, in his dad's side, but he does not know much about it. He has three brothers, one sister and two children, alive and well. He lives with a girlfriend. I believe he lives in [place] or [place]. CURRENT MEDICATIONS: At this time include, mirtazapine 7.5 at bedtime, Senokot-S one tab b.i.d., docusate 100 b.i.d., bisacodyl as needed, heparin 5000 units t.i.d., nicotine 21 mg patch daily, multivitamin with iron daily, aspirin 81 mg daily, lisinopril 10 daily, tamsulosin 0.4 daily, famotidine 20 b.i.d., oxycodone 5 mg q.6h. p.r.n., magnesium p.r.n., dexamethasone 2 mg b.i.d. and Levetiracetam 500 mg b.i.d. PHYSICAL EXAMINATION: [facility] [address] [place] [address] CONSULTATION Name: RUPALI ALCARAZ PAMELA Room #: 512-P [facility] IN M.R.#: [id number] Admission: 06/29/18 Attend Phys: Gabino Celeste MD Discharge: Date of : 55 Report #: [id number] GENERAL: The patient appears his stated age. VITAL SIGNS: His height is reported as 5 feet 8, which is 172.7 cm. Weight is 140 pounds or 63.5 kilograms. Blood pressure is 108/69, respirations are 14, pulse 58, temperature 97.9 and O2 sats 95. NEUROLOGICA: The patient does have katia and scars from his craniotomy on his skull. His speech and thought pattern appear to be fairly normal, though slightly slow from fatigue. LUNGS: Seem fairly clear. HEART: Seems regular rhythm. EXTREMITIES: There is trace edema in his extremities. Motor strength not examined. HEENT: Oropharynx may have possible early thrush, we will keep an eye on this. LABORATORY DATA: Lab here has a BUN of 27 and creatinine of 0.6. AST was 21 earlier this month, total bilirubin 0.8, alkaline phosphatase was 82 and SGPT 27. Albumin was 3.4 earlier. Recent white count 10.4, recent hemoglobin 13.6 and recent platelets 257,000. SUMMARY: Adenocarcinoma of the lung, metastatic to brain. The patient had been seen by Dr. Uriel Carcamo. His phone number for contact is [phone] and also Radiation Oncology, Dr. Cisco Yeboah, at [phone]. I think the plan was for him to recover, probably do sterotactic radiation therapy and then maybe give consideration to targeted therapy or perhaps PD-L1 therapy, pending the patient's performance status at that time. ASSESSMENT AND PLAN: 1. As above, metastatic non-small cell lung cancer. Continue rehabilitation. Agree with plans for tentative sterotactic radiation and await molecular testing for systemic therapy. 2. Status post craniotomy with weakness. Continue his rehabilitation efforts. 3. Benign prostatic hypertrophy, tamsulosin. 4. Hypertension, lisinopril. 5. Clot prophylaxis, heparin. 6. Ulcer prophylaxis, famotidine. 7. Seizure prophylaxis, levetiracetam. We will be available and follow with you. <ELECTRONICALLY SIGNED> By: Radames Gregorio MD 07/07/18 0733 [id number] [id number] Radames Gregorio MD /filipe
--- NOTE | 2018-07-07 10:50 | NUR ---
ASSUMED CARE AT 0700. PAITENT IS ALERT AND ORIENTED X4. PATIENT HAS SMITA ON THE MIDDLE OF HIS HEAD. PATIENT HAS LEFT ARM WEAKNESS AND LEFT LEG FACIDITY. LUNGS ARE CLEAR. AND ABD IS SOFT WITH BSX4. PATIENT VOIDS PER URINAL. FALL AND SAFETY PROTOCOLS IN PLACE. C/O FERNANDES PAIN. MEDICATED WITH PRN PAIN MED. PLAN TO REMOVE SMITA TODAY. PATIENT CONTINUES TO PROGRESS SLOWLY TOWARDS D/C GOALS. WILL CONTINUE TO MONITER
--- NOTE | 2018-07-07 12:25 | NUR ---
Nutrition followup: pt continues on rehab unit, S/P right frontal craniotomy, resection of brain mass, lung CA primary. Still eating very well, 75-100% of meals and reports excellent appetite. Refuses additional supplements. No new weight since 06/29 but no prior loss reported. REC obtain new weight.
--- NOTE | 2018-07-07 12:26 | NUR ---
PER LIAISON WITH PROVIDER PLUS PT WILL QUALIFYING FOR HOME HOSPITAL BED, WITH DX AND NEED FOR BED MOBILITY. INFORMATION PASSED ON TO 5N TEAM, DR HAGAN AND TRACY. CM LEFT MESSAGE FOR DAUGHTER GALLITO. CM ALSO RETURNED PHONE ALL TO GIRL FRIEND FIDELIA WHO WOULD LIKE TO COME IN FOR REHAB TRAINING ON TUESDAY BUT DOESNT HAVE RIDE HERE AND WOULD LIKE PHONE CALL FROM THERAPY TEAM. CM PASSED ON INFORMATION TO 5N TEAM AND WILL CONT FOLLOWING NEEDED FOR ANTICIPATE DC 07/14/17 HOME WITH [facility](PT,OT,ST, NURSING) AND HOSPITAL BED.
--- NOTE | 2018-07-07 12:28 | NUR ---
PT SPOKE WITH BRENDAN WITH THE WOUND CARE TEAM. Pt CLEARED FOR SLIDEBOARD TRANSFERS WITH STAFF ASSIST.
[2018-07-07 19:41] VITALS: BP 121/69
--- NOTE | 2018-07-07 23:49 | NUR ---
PT ALERT AND ORIENTED X 4. LEFT SIDED WEAKNESS. INCISION TO HEAD C/D/I AND HEALING. PT C/O CONSTIPATION. CHARTED HE HAD A LARGE BM YESTERDAY. MIRALAX GIVEN PER PT REQUEST. PT DENIES PAIN OR DISCOMFORT. BED ALARM ON FOR SAFETY. PT APPEARS TO BE SLEEPING ON HOURLY ROUNDS.
[2018-07-08 07:18] VITALS: BP 130/66
--- NOTE | 2018-07-08 12:37 | NUR ---
ASSUMED CARE AT 0700. JOCELYN IS ALERT AND ORIENTED X4. ABLE TO VOICE HIS NEEDS. REPORTS DIDN'T SLEEP WELL LAST NIGHT, ENCOURAGED PT TO TAKE PRN MELATONIN TONIGHT AND PAIN MED NEED TO HELP HIM SLEEP.HAD PATIENT HAS SMITA ON THE MIDDLE OF HIS HEAD YESTERDAY. APPLIED STERRI STRIPS TO KEEP THEM INPLACE UNTIL HEAL. PATIENT HAS LEFT ARM WEAKNESS AND LEFT LEG FACIDITY. HAS HX OF POLIO. LUNGS ARE CLEAR. AND ABD IS SOFT WITH BSX4. PATIENT VOIDS PER URINAL. COMPLAIN OF CONSTIPATION. OBTAINED ORDER FOR DAILY MIRALAX, GAVE MIRALAX WITH WARM APPLE JUICE TWICE. ASSISTED PT TO BATHROOM PER REQUESTS, BUT DIDN'T HAVE ANY BM YET. TRANSFERED WITH 2X ASSIST. WILL CONTINUE TO MONITOR BM. DRESSING ON LEFT ELBOW CHANGED. FALL AND SAFETY PROTOCOLS IN PLACE. C/O FERNANDES PAIN. MEDICATED WITH PRN PAIN MED. HEADACHE WENT DOWN TO 1/10 NOW. PT REFUSED EYE DROPS OBTAINED ORDER TO CHANGE TO PRN. PATIENT CONTINUES TO PROGRESS SLOWLY TOWARDS D/C GOALS. WILL CONTINUE TO MONITOR
[2018-07-08 19:20] VITALS: BP 110/75
--- NOTE | 2018-07-09 02:05 | NUR ---
assumed care at approx 1900 evening 07/08. pt sitting up in w/c at change of shift. pt c/o constipation at beginning of evening. pt assisted onto toilet and not able to have bm at that point. pt getting frustrated and decided he would get into bed with assistance. pt requested bedpan and had very large formed bm in bedpan. pt stated he felt so much better after that. pt given hs meds with no problems. pt voiding per urinal. pt appears to be sleeping soundly with hourly rounding checks. bed alarm on and call light in reach. will continue to monitor.
[2018-07-09 07:00] VITALS: BP 110/71
[2018-07-09 07:15] VITALS: BP 152/74
--- NOTE | 2018-07-09 09:24 | NUR ---
ASSUMED CARE AT 0700. PATIENT IS ALERT AND ORIENTED X4. PATIENT HAS LEFT SIDED WEAKNESS AND LEFT LEG FLACCIDITY. LUNGS ARE CLEAR. ABD IS SOFT WITH BSX4. STERI-STRIPS INTACT TO TOP OF HIS HEAD. UP IN BED FOR BREAKFAST. PATIENT USES URINAL TO VOID. NO EDEMA NOTED IN LOWER EXTREMITES. FALL AND SAFETY PROTOCOLS IN PLACE. DENIES ANY PAIN AT THIS TIME. CONTINUE TO PROGRESS SLOWLY TOWARDS D/C GOALS. WILL CONTINUE TO MONITER.
[2018-07-09 20:16] VITALS: BP 102/55
--- NOTE | 2018-07-10 04:29 | NUR ---
PT LYING IN BED. VOIDING PER URINAL. LORTAB PROVIDING PAIN RELIEF. RESTING COMFORTABLY. NO NEEDS VOICED. CALL LIGHT WITHIN REACH. WILL CONTINUE TO PROVIDE FREQUENT OBSERVATION.
[2018-07-10 07:45] VITALS: BP 135/67
--- NOTE | 2018-07-10 07:46 | NUR ---
ASSUMED CARE AT 0700. PATIENT IS ALERT AND ORIENTED X4. PATIENT C/O FERNANDES AND WAS MEDICATED WITH PRN PAIN MED. PATIENT HAS LEFT ARM WEAKNESS, AND LEFT LEG FLACCIDITY. PATIENT HAS STERI-STRIPS IN [place] ON TOP OF HIS HEAD. HEAD INCISION CLEAN AND DRY. LUNGS ARE CLEAR. ABD IS SOFT WITH BSX4. PATIENT VOIDS PER URINAL CONNER COLORED URINE. FALL AND SAFETY PROTOCOLS IN PLACE. PAIN ABOVE AND INTERVENTION. CONTINUES TO PROGRESS TOWARDS D/C GOALS. WILL CONTINUE TO MONITER.
[2018-07-10 20:51] VITALS: BP 121/61
--- NOTE | 2018-07-11 03:01 | NUR ---
assumed care at approx 1900 evening 07/10. pt visiting with family/friends at bedside at change of shift. pt alert and oriented x4, appropriate and cooperative. pt took hs meds before falling asleep. pt voiding per urinal. pt appears to be sleeping soundly with hourly rounding checks. bed alarm on and call light in reach. will continue to monitor.
[2018-07-11 08:21] VITALS: BP 105/62
--- NOTE | 2018-07-11 11:04 | NUR ---
ASSUMED CARE AT APPROX 0715. PATIENT A/O X4. C/O HEADACHE AND PAIN AT INCISION SITE. HEAD INCISION WELL APPROXIMATED. MEDICATED FOR PAIN PRN. PATIENT RESTING. FALL PRECAUTIONS IN PLACE. ROUNDED ON HOURLY. VSS. DRESSINGS TO LEFT ARM AND LEFT BUTTOX C/D/I. LOW AIR LOSS MATRESS IN PLACE. WILL CONTINUE TO MONITOR.
[2018-07-11 19:28] VITALS: BP 133/65
--- NOTE | 2018-07-12 00:26 | NUR ---
PT ALERT AND ORIENTED X 4. LEFT SIDED WEAKNESS. HEAD INCISION C/D/I WITH STERI-STRIPS. PT C/O HEADACHE. OXYCODONE GIVEN AT HS. MELATONIN ALSO GIVEN AT HS PER PT REQUEST. BED ALARM ON FOR SAFETY. PT APPEARS TO BE SLEEPING ON HOURLY ROUNDS.
[2018-07-12 07:15] VITALS: BP 107/63
--- NOTE | 2018-07-12 10:48 | NUR ---
ASSUMED CARE AT APPROX 0715. PATIENT A/O X4. VSS. C/O HEADACHE AND PAIN AT INCISION SITE, RIGHT SIDE OF HEAD. HEAD INCISION WELL APPROXIMATED, STERI-STRIPS INTACT. PATIENT REQUESTS NO PAIN MEDICINE AT THIS TIME. C/O CONSTIPATION, SENNA AND COLACE GIVEN, MIRALAX OFFERED- PATIENT REFUSED MIRALAX. BOWEL SOUNDS ACTIVE, WILL CONTINUE TO MONITOR. PATIENT UP IN , PARTICIPATING IN THERAPY. PATIENT EDUCATED ON MEDICATIONS, PATIENT STATES HE MANAGES MEDS AT HOME HIMSELF BUT MAY NEED SUPERVISION UPON DISCHARGE. WILL CONINTUE TO ASSESS/EDUCATE. FALL PRECAUTIONS IN PLACE. PATIENT CALLS APPROPIRATELY FOR ASSISTANCE. WILL CONTINUE TO MONITOR.
--- NOTE | 2018-07-12 15:53 | NUR ---
Pt PARTICIPATED IN COMMUNITY REINTEGRATION ACTIVITY ON 07/12/2018 WITH OT, PLEASE REFER TO OT DOCUMENTATION.
[2018-07-12 19:20] VITALS: BP 120/67
--- NOTE | 2018-07-13 01:23 | NUR ---
PT ALERT AND ORIENTED X 4. VOIDING ADEQUATE AMTS CLEAR YELLOW URINE PER URINAL. HEAD INCISION C/D/I WITH STERI-STRIPS. PT C/O HEADACHE. OXYCODONE GIVEN AT HS AND PT SLEEPING UPON REASSESSMENT. MELATONIN ALSO GIVEN AT HS PER PT REQUEST. BED ALARM ON FOR SAFETY. PT APPEARS TO BE SLEEPING ON HOURLY ROUNDS.
[2018-07-13 08:52] VITALS: BP 104/52
--- NOTE | 2018-07-13 09:06 | NUR ---
ASSUMED CARE AT 0700. PATIENT IS ALERT AND ORIENTED X4. PATIENT HAS LEFT ARM WEAKNESS, AND LEFT LEG FLACCIDITY. LUNGS ARE CLEAR. ABD IS SOFT WITH BSX4. VOIDS CONNER COLORED URINE PER URINAL. NO EDEMA NOTED IN PATIENTS LOWER EXTREMITIES. FALL AND SAFETY PROTOCOLS IN PLACE. C/O FERNANDES PAIN. MEDICATED WITH PRN PAIN MED. UP IN W/C FOR BREAKFAST. PATIENT IS 1 PERSON TRANSFER WITH GAIT BELT AND SLIDE BOARD. PATIENT HAS STERI-STRIPS IN PLACE ON THE T0P OF HIS HEAD. NO DRAINAGE NOTED. CONTINUES TO PROGRESS TOWARDS D/C GOALS. PLAN IS FOR PATIENT TO D/C TOMMAROW. WILL CONTINUE TO MONITER.
--- NOTE | 2018-07-13 13:08 | NUR ---
TEAM MEETING, RECOMMENDATION CONT DCP,07/14/18 HOME WITH [facility] ( PT, OT,ST, NURSING), HOSP BED, SLIDE BOARD.
[2018-07-13 19:40] VITALS: BP 110/59
--- NOTE | 2018-07-14 03:15 | NUR ---
Assumed care of pt at 1915. Pt alert and oriented x4, calm and cooperative. c/o headache at HS, given po med with good stated relief. Voiding per urinal in adequate amounts. Denies nausea or dypsnea. Anticipating discharge to home later today. Checked on hourly rounds.
[2018-07-14 07:20] VITALS: BP 109/56
[2018-07-14] MEDS ORDERED: REMERON15 MG PO (08:50)
--- NOTE | 2018-07-14 09:18 | NUR ---
ASSUMED CARES AT 0700. PT IN BED, AWAKE, A/O*4. C/O HEADACHE 11/17, OXYCODONE ADMINISTERED NEEDED. INCISION ON THE HEAD RIGHT REMAINS INTACT, STERI STRIPS DRY AND INTACT. PT CONTINUES TO HAVE 3+ EDEMA IN BILATERAL FEET, CONTINUES TO HAVE FLACCIDITY IN LEFT LE AND WEAKNESS IN LEFT ARM. SKIN TEARS ON ARM AND THIGH LEFT REMAIN INTACT. PT UP WITH 1 PERSON SLIDE BOARD ASSIST TO CHAIR. VOIDS PER URINAL. PT WILL BE DISCHARGING LATER TODAY. Q1H VISUAL CHECKS. CALL LIGHT WITHIN REACH. FALL PRECAUTIONS IN PLACE
--- NOTE | 2018-07-14 10:51 | NUR ---
pt dustin to dc home with [facility] (pt,ot,st,nursing), around noon today. daughter and family will pick him up. per provider plus, hospital bed and slide board to be delivered to pt home between 9am-noon.
[2018-07-14 11:34] VITALS: BP 109/56
--- NOTE | 2018-07-14 12:00 | NUR ---
NOTIFIED RUFUS IN ADM. AT [facility] THE DC ORDERS/SUMMARY ARE FINALIZED IN COMPUTER. SHE WILL NOTIFY PT. OF TIME OF VISITS. PT. DISCHARGING TODAY.
--- NOTE | 2018-07-14 13:25 | NUR ---
WOUND FOLLOW UP: PT. WAS SEEN TODAY BY DR. HENSLEY AND MYSELF. PT. WOUNDS ARE STABLE AND HEALING WELL AT THIS TIME. DISCHARGE PLANNING WAS DISCUSSED THIS VISIT. RECOMMENDATIONS: CONTINUE WITH CURRENT PLAN OF CARE. PT. AND STAFF NURSE WERE INSTRUCTED ON PLAN OF CARE.
== END 2018-07-14 13:11 | disposition home health service (06) | DRG 55 ==
LOC: ENTRNSPT 07-14 12:48
PROVIDERS: Nurse Practitioner; Nurse Practitioner Family; ADMIT Physical Medicine & Rehabilitation
DX: C79.31 Secondary malignant neoplasm of brain (principal); G81.94 Hemiplegia, unspecified affecting left nondominant side; E46 Unspecified protein-calorie malnutrition; C34.90 Malignant neoplasm of unspecified part of unspecified bronchus or lung; I10 Essential (primary) hypertension; N40.0 Benign prostatic hyperplasia without lower urinary tract symptoms; F17.210 Nicotine dependence, cigarettes, uncomplicated; R51 Headache; G47.00 Insomnia, unspecified; Z53.29 Procedure and treatment not carried out because of patient's decision for other reasons; R53.1 Weakness; I73.9 Peripheral vascular disease, unspecified; L89.022 Pressure ulcer of left elbow, stage 2; L89.222 Pressure ulcer of left hip, stage 2; R41.9 Unspecified symptoms and signs involving cognitive functions and awareness; F32.9 Major depressive disorder, single episode, unspecified; Z79.82 Long term (current) use of aspirin; Z79.899 Other long term (current) drug therapy; Z86.12 Personal history of poliomyelitis; Z68.21 Body mass index [BMI] 21.0-21.9, adult; Z71.6 Tobacco abuse counseling
CPT/HCPCS: 10112